=== PATIENT | male | born 1950 | race Caucasian/White ===

== ENCOUNTER 2018-11-27 12:08 | Inpatient (IN) | payer BC ==
[~2018-11-27] VITALS: Ht 175.3 cm; Wt 79.2 kg
--- NOTE | 2018-11-27 12:35 | NUR ---
Report from CELINE Boone(W) at 0909. Pt arrived via wheelchair with from admissions. Pt is in Rt ear per . Pivot transferred to bed with one assist, hopping on RLE, immobilizer in place to LLE. Bed alarm on, call lt in reach, showed pt menu to order lunch, he states he is not very hungry.
[2018-11-27 12:58] VITALS: BP 112/55; PULSE 75; TEMP 98.1
[2018-11-27] MEDS ORDERED: ROXICODONE 55 MG/TAB PO (14:02)
[2018-11-27] MEDS ORDERED: ELIQUIS 2.5 PO (14:03)
[2018-11-27] MEDS ORDERED: DULCOLAX TAB5 MG PO (14:04)
[2018-11-27] MEDS ORDERED: NEURONTIN300 MG/CAP PO (14:05)
[2018-11-27] MEDS ORDERED: COLACE 100100 MG/CAP PO (14:05)
[2018-11-27] MEDS ORDERED: LEADER CLE17 GM/Dose PO (14:06)
[2018-11-27] MEDS ORDERED: FLOMAX 0.40.4 MG/CAP PO (14:06)
[2018-11-27] MEDS ORDERED: NORVASC 5MG5 MG/TAB PO (14:07)
[2018-11-27] MEDS ORDERED: LOPRESSOR 550 MG/TAB PO (14:07)
[2018-11-27] MEDS ORDERED: LIPITOR 40MG TA40 MG PO (14:08)
[2018-11-27] MEDS ORDERED: ASPIRIN 81M81 MG/TA2 PO (14:08)
[2018-11-27] MEDS ORDERED: MULTI VITAMINS1 TAB PO (14:09)
[2018-11-27] MEDS ORDERED: PLAVIX 75MG TAB75 MG PO (14:09)
[2018-11-27] MEDS ORDERED: PRINIVIL20 MG PO (14:09)
[2018-11-27] MEDS ORDERED: NITROSTAT0.4 MG/TAB SL (14:10)
--- NOTE | 2018-11-27 19:34 | NUR ---
Home meds sent home with , Bárbara. Pt c/o constipation, reviewed bowel meds scheduled. Pt has some hearing/cog/problem solving deficits wherein repetition is required. Pt denied needing pain meds. Reviewed IPR POC. asked about getting pt shorts, agreed they would be easier to work with. Pt needed enc/cued/reminded to order meals, had shown him how to use the phone while he denied needing shown, later pt stated he needed someone to show him how to use it, shown again, and cued to number on menu and board. Pt began looking at menu, asked this nurse for recommendations, suggest two AHA choices. RENTAL CAR DELIVERER later reports that pt asked for help with ordering. Pt in bed, alarm on, call lt in reach, urinal in reach, glasses in reach, report to LUPE Lynn.
--- NOTE | 2018-11-27 20:00 | NUR ---
PT RESTING IN BED. MOD 1 ASSIST FOR BALANCE WITH WALKER. VOIDED W/O DIFFICULTY. PT DENIES URINARY RETENTION. NO HEMATURIA NOTED. LLE DRSG DRY. IMMOBILIZER IN PLACE. ELEVATED ON PILLOWS. PT FEEL ELECTRICAL PULSATION TO STUMP. WANTS PAIN MED AT 2200. REVIEWED DAILY SCHEDULE AND ROUTINE WITH PT. PT VERBALIZED WANTED TO GO HOME AND HEAL FOR A WEEK BEFORE COMING HERE. REVIEWED POTENTILA COMPLICATIONS FROM DOING THAT. PT AGREED. PT RELATED THERAPY TODAY REALLY HURT. CALL LIGHT IN REACH. BED ALARM SET.
[2018-11-28 05:17] VITALS: BP 120/62; PULSE 78; TEMP 98.5
--- NOTE | 2018-11-28 10:50 | NUR ---
SW met with the patient for an initial assessment, patient is new to [facility]. The patient lives in [place] with his and three kids. The patient does not have any DME and reports independence with ADLs before this hospitalization. The patient's PCP is Dr. Weston in [place] and [facility]. Crowell in [place]. The patient does not have advanced directives in the EMR. SW provided DPOA-HC form. The patient voiced concerns about being able to get around his home in a wheelchair. He is concerned about making his food and getting to the bathroom. SW addressed his questions and then informed the patient's nurse. The patient reports he has lots of social support. nutrition services assistant will continue to follow.
--- NOTE | 2018-11-28 11:46 | NUR ---
Report from LUPE Lynn. Pt ate breakfast in bed and was asleep upon arrival to give morning meds. Per Dr. Bermudez, pt has anxiety/discouraged about intensity of therapies, enc offered. 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 Applied lotion to knee and thigh- not incision. Removed knot at distal end of stump as this would be concern for causing pressure sore. Reapplied dressings and immobilizer, pt denied needing to toilet, agreeable to mallika prior to therapy, then agreed to toilet, passing gas, amb with walker, had BM. Pt reports that overnight he had a few episodes of "chest pain" which only lasted a few minutes. Nothing mentioned in report from night nurse. Dr. Bermudez aware and states pt's cardiac cath at previous facility was "clean." Ordered baseline EKG. Edu pt to call next time so staff is aware.
--- NOTE | 2018-11-28 13:19 | NUR ---
Elvira, OT reports pt was standing with walker and became nauseated, had about 1/4 cup clear emesis with bits of tater tots. Left voicemail for Dr. Bermudez for orders. Offered sprite and saltines.
--- NOTE | 2018-11-28 14:59 | NUR ---
Notified RT of orders for EKG at 0917, informed them of when pt had break between therapies, and when finished with therapies for the day as Dr. Bermudez wants a baseline for comparison. 1425 notified again. Pt bedresting, LLE on pillow with immobilizer in place. Declined pain med. TUMS given for reflux/emesis as prior episode.
[2018-11-28 18:02] VITALS: BP 124/57; PULSE 92; TEMP 98
--- NOTE | 2018-11-28 22:30 | NUR ---
Patient has been resting in bed. States not really having pain but requests pain med to help sleep/relax and roxycodone and melatonin reviewed and given. Is min 1 assist with walker and hops RLE without problems. Rests self back in bed. Declines snack or needs.
--- NOTE | 2018-11-29 01:55 | NUR ---
Rests with eyes closed. Respirations with ease.
--- NOTE | 2018-11-29 03:26 | NUR ---
Rests with eyes closed. Respirations with ease.
[2018-11-29 05:31] VITALS: BP 100/57; PULSE 68; TEMP 97.8
--- NOTE | 2018-11-29 11:27 | NUR ---
Patient was not in the room and he may have been in physical or group therapy.
[2018-11-29 16:48] VITALS: BP 125/61; PULSE 73; TEMP 97.9
--- NOTE | 2018-11-29 18:00 | NUR ---
Alert. Denied pain. Had group therapy with PT this AM. Slept at intervals throughout shift.
[2018-11-30 04:27] VITALS: BP 117/60; PULSE 78; TEMP 97.7
[2018-11-30 17:05] VITALS: BP 130/61; PULSE 72; TEMP 98.3
--- NOTE | 2018-11-30 18:00 | NUR ---
Minimal complaints of pain today. Denied need for pain med. Immobilizer to left knee. Ambulates well with walker. Complained of bloating. Bowel meds given.
--- NOTE | 2018-11-30 18:50 | NUR ---
Pt calls for assist to BR. Gait belt and walker with 1:1 assist. Steady gait. Had large loose BM. Voided. Voices no c/o pain, SOA.
[2018-12-01 05:23] VITALS: BP 103/61; PULSE 81; TEMP 97.4
--- NOTE | 2018-12-01 06:29 | NUR ---
Pt has had an uneventful night. Company came for a while last night. Calls for stand by assist to the BR. Uses walker and gait belt. Steady gait.
[2018-12-01 07:19] LABS: BASO # 0.1 (0.0-0.2); BASO % 0.4 % (0.0-2.0); EOS # 0.5 (0.0-0.7); EOS % 4.4 % (0-4.0); GRAN # 8.7 (1.4-6.5); GRAN % 74.5 % (42.2-75.2); LYMPH # 1.5 (1.2-3.4); LYMPH % 12.9 % (20.0-51.0); MEAN CELL VOLUME 90 fl (80.0-100.0); MEAN CORPUSCULAR HGB CONC 32 g/dl (33.0-37.0); MEAN PLATELET VOLUME 9.7 fl (7.4-10.4); MONO # 0.8 (0.1-0.6); MONO % 6.9 % (1.7-9.3); PLATELET COUNT 446 K/mm3 (130-400); RED BLOOD COUNT 3.43 M/mm3 (4.20-5.60); REDCELL DISTRIBUTION WIDTH-CV 13.8 % (11.5-14.5)
[2018-12-01 07:28] LABS: HEMATOCRIT 30.7 % (42.0-52.0); HEMOGLOBIN 9.8 g/dl (13.5-18.0); MEAN CORPUSCULAR HEMOGLOBIN 29 pg (27.0-31.0)
[2018-12-01 07:37] LABS: CALCIUM 8.4 mg/dL (8.4-10.2); CREATININE, serum 0.96 (0.66-1.25); MAGNESIUM 2.4 mg/dL (1.6-2.3); POTASSIUM 4.6 mmol/L (3.4-5.0)
--- NOTE | 2018-12-01 10:44 | NUR ---
Report from LUPE Reynolds. Pt in bed for breakfast, requested to toilet, amb to BR with CGA gait belt, walker. Pt reports pain to R shoulder, ice pack provided, declines pain med/tylenol at this time, just wants to bedrest. Immobilizer in place. Reviewed bowel med regime.
--- NOTE | 2018-12-01 11:12 | NUR ---
During skin assessment of L BKA, noted that bulky dressing to stump had slid distally and off of stump. Removed dressing to find incision with edges well approximated, old sangiounous dried drainage to gauze, old xeroform gauze, and wali and roll sleeve under immobilizer. Slight scabbing to incision, slight redness, one area of skin around middle of incision that is discolored red but intact. Applied new xeroform gauze and staggered layers of gauze 4x4s and secured with kerlix, wali, and roll stockinette, immobilizer re-applied. Pt alysha well, asleep now in bed with alarm on. Call lt in reach, urinal in reach.
--- NOTE | 2018-12-01 12:49 | NUR ---
Pt was having emesis, Joann, JIVE DEVELOPER assisted pt to BR and he continues to vomit.
--- NOTE | 2018-12-01 13:08 | NUR ---
Pt continues to produce thick clear mucous, reports his stomach feels full up from the bottom. BS active. Having loose stools. TUMS given. Sitting up in bed. Call lt in reach.
--- NOTE | 2018-12-01 13:27 | NUR ---
Left Dr. Bermudez voicemail regarding reflux/emesis and asking for orders.
--- NOTE | 2018-12-01 14:36 | NUR ---
See orders for KUB
[2018-12-01 16:41] VITALS: BP 129/68; PULSE 81; TEMP 98.2
--- NOTE | 2018-12-01 17:27 | NUR ---
Pt bedresting, has not eaten any supper yet, encouraged to take it slow d/t emesis earlier. Pt amb to BR with walker, heard belching again, basin in reach, will continue to monitor.
--- NOTE | 2018-12-01 21:25 | NUR ---
HS meds all reviewed and given earlier was still working on supper "took me 6 hours to eat". Denies nausea "I think things just aren't working right stomach". Declined bowel meds. Roxycodone given for 1/10 pain LBKA. Watches TV.
--- NOTE | 2018-12-02 02:34 | NUR ---
Patient rests in bed with eyes closed. Respirations with ease.
[2018-12-02 05:10] VITALS: BP 117/59; PULSE 78; TEMP 98.4
--- NOTE | 2018-12-02 08:24 | NUR ---
Patient working with OT at this time. Patient reports pain 2/10 to left stump this morning. Refused any pain meds.
[2018-12-02 08:30] VITALS: BP 135/68; PULSE 89
--- NOTE | 2018-12-02 12:48 | NUR ---
Patient attended all therapies this morning. Was independent with his grooming, just required set up. Is continent of bowel and bladder. Blood pressure was lower this morning prior to getting out of bed. BP was retaken prior to taking morning blood pressure meds and were no longer low. Will continue to monitor.
--- NOTE | 2018-12-02 13:29 | NUR ---
Patient currently resting in bed at this time.
[2018-12-02 17:37] VITALS: BP 116/53; PULSE 73; TEMP 97.5
--- NOTE | 2018-12-02 19:45 | NUR ---
HS meds all reviewed and given along with bowel med for no bm today. Up to the bathroom with standby assist and walker and back to bed. Denies pain at this time.
--- NOTE | 2018-12-02 21:37 | NUR ---
Rests in bed visiting on phone.
--- NOTE | 2018-12-03 03:09 | NUR ---
Patient has been resting in bed with eyes closed respirations with ease.
[2018-12-03 03:47] VITALS: BP 94/54; PULSE 65; TEMP 97.3
--- NOTE | 2018-12-03 09:10 | NUR ---
Report from LUPE Landrum. Pt in bed for breakfast and resting until nurse arrived to give morning meds. Took meds whole with thin liquid, pt denies having BM yesterday and BM meds held yesterday. Discussed options, agreeable to miralax, enc to drink slowly today, will re-assess later. Declined offer to toilet at this time. Bed alarm on, call lt in reach, immobilizer to LLE on pillow. Declined pain meds prior to therapies.
--- NOTE | 2018-12-03 12:25 | NUR ---
Pt states he cannot eat, feels too full, thinks he will get sick if he tries eating. Zofran and TUMS given. Resting in bed, immobilizer to LBKA
--- NOTE | 2018-12-03 15:48 | NUR ---
MIKE met with patient to review IPR team conference notes and discuss discharge on Tuesday 12/05. Patient read through notes and did not have any questions or concerns. Patient will require bath aids, a wheelchair, and walker. Patient reports he plans to purchase the bath aid online but would like to have the walker and wheelchair prior to discharge. SW presented DME choice form and DME company choices. Patient chose [facility] to provide the wheelchair and walker. Patient reported he would like to private pay for the walker and use his insurance for the walker. SW also reported that home health PT and OT is also recommended. MIKE provided a list of home health agencies that services [place], [place]. Patient reports he would like to speak with his friend who works on home health for her opinion. MIKE will follow up about HH choice tomorrow. MIKE contacted and faxed the wheelchair and walker order to [facility].
[2018-12-03 16:46] VITALS: BP 102/53; PULSE 71; TEMP 97.6
--- NOTE | 2018-12-03 19:25 | NUR ---
Pt requested suppository, provided, toileted once and no results, in bed resting, denies any needs, has not started to eat supper. Report to LUPE Landrum.
--- NOTE | 2018-12-03 22:15 | NUR ---
Patient rests in bed and concerned about not having bm for 2 days. Miralax and colace give along with HS meds, sleep and pain med. Is mod I in room without difficulty. States is passing gas. Bowel sounds active x 4.
--- NOTE | 2018-12-04 03:00 | NUR ---
Patient has been resting with eyes closed. Respirations with ease.
--- NOTE | 2018-12-04 05:06 | NUR ---
AWAKENED FOR MED AND VITALS. DENIES PAIN. STATES DIDN'T HAVE BM OR GET UP IN THE MIDDLE OF THE NIGHT. REPORTS SLEPT.
[2018-12-04 05:08] VITALS: BP 88/52; PULSE 64; TEMP 97.6
[2018-12-04 07:06] VITALS: BP 89/59; PULSE 69; TEMP 97.9
--- NOTE | 2018-12-04 07:17 | NUR ---
Report from LUPE Landrum. Pt mod I in rm. Left voicemail for Dr. Reaves to call this nurse. Low BPs and will hold BP meds
--- NOTE | 2018-12-04 08:05 | NUR ---
Rehab cocktail given with miralax. Pt passing lots of gas. Denies nausea at this time, did not eat toast.
--- NOTE | 2018-12-04 12:04 | NUR ---
Declined offer of zofran as prev of N/V
[2018-12-04 12:56] VITALS: BP 89/50; PULSE 76; TEMP 97.9
--- NOTE | 2018-12-04 21:00 | NUR ---
Pt. sitting up in bed at this time. Pt. is A&OX3, assessment complete. Dressing to LT. BKA CDI with immobilizer on. Pt. reports pain at a 5 on pain scale, gave pain meds per orders. Pt. denies further needs, call light within reach.
[2018-12-05 05:21] VITALS: BP 123/74; PULSE 84; TEMP 97.7
[2018-12-05 10:25] VITALS: BP 120/68; PULSE 87
[2018-12-05] MEDS ORDERED: DULCOLAX TAB5 MG PO (11:56)
[2018-12-05] MEDS ORDERED: TUMS EXTRA STR750 MG PO (11:57)
[2018-12-05] MEDS ORDERED: ROXICODONE 55 MG/TAB PO ×3 (11:58→12:41)
[2018-12-05] MEDS ORDERED: LOPRESSOR 550 MG/TAB PO (11:58)
--- NOTE | 2018-12-05 13:08 | NUR ---
SW met with patient to discuss discharge today. Patient will discharge home today with his and receive home health PT/OT. Patient reviewed medicare.gov resource list and chose [facility]. Patient will also receive a wheelchair and walker from [facility] prior to discharge. SW contacted [facility] and faxed referral SW faxed discharge orders.
--- NOTE | 2018-12-05 14:00 | NUR ---
Patient Health Summary, Discharge Summary, and Home Meds printed and reviewed with patient and . Stressed importance of follow up appointments. Reviewed medications, provided printed prescription for Roxicodone. Called presscriptions for Eliquis, Docusate, Gabapentin, tamsulosin, atorvastatin and plavix to [facility]. Belongings gathered by LUPE/Leidy including glasses, immobilizer, flip phone, IPAD and 2 chargers. Patient transported via whellchair by RN/Leidy and seatbelted for ride home. Patient and denied questions.
--- NOTE | 2018-12-05 14:29 | NUR ---
Patient was independent in his room today with a wheelchair. Denied pain this shift. Reported having problems with having a BM, but did have a small soft formed brown BM early this morning and then Large sof formed prior to being discharged. Denied any nausea. Discussed discharge with both him and his . Educated with how to put the wheelchair in the trunk of her car. Patient was able to transfer to car from wheelchair independently.
--- NOTE | 2018-12-05 14:44 | NUR ---
Discharge FIM scores for 11/04/18 were reviewed by the team. Team determined the nursing score of (6) for toileting was inaccurately scored as documentations state pt "MANAGES ALL TOILETING TASKS" which would make the score a 7.--PD Casey.
--- NOTE | 2018-12-05 15:58 | NUR ---
MIKE rec'd a call from Lauren at [facility]. Lauren reports they are unable to accept patient because they do not have OT in the patient's area. MIKE contacted [facility] in [place], [place] and they report they can provide PT and OT for [place], [place]. She did report that they are unsure if insurance will approve before the weekend but she will contact patient's after insurance approves or denies. She did report that they will assist patient and with locating an in network company in the event that [facility] is out of network with [facility]. MIKE then contacted patient's and informed her of this. MIKE informed of the other company that patient chose, [employer]. Patient's is agreeable to [employer]. MIKE faxed referral and discharge orders to [facility]. [place], [place] office P# [phone] F# [phone]
--- NOTE | 2018-12-08 14:16 | NUR ---
Kristian, at [facility], reports that they did not receive the patient's facesheet or discharge orders. MIKE faxed those documents to Kristian at [facility].
== END 2018-12-05 13:50 | disposition home health service (06) | DRG 948 ==
PROVIDERS: ADMIT Internal Medicine
DX: R53.81 Other malaise (principal); I25.10 Atherosclerotic heart disease of native coronary artery without angina pectoris; I25.2 Old myocardial infarction; I73.9 Peripheral vascular disease, unspecified; I10 Essential (primary) hypertension; D64.9 Anemia, unspecified; N40.1 Benign prostatic hyperplasia with lower urinary tract symptoms; Z89.512 Acquired absence of left leg below knee; Z79.01 Long term (current) use of anticoagulants; Z79.82 Long term (current) use of aspirin; Z79.891 Long term (current) use of opiate analgesic; Z95.5 Presence of coronary angioplasty implant and graft; Z87.891 Personal history of nicotine dependence; R33.8 Other retention of urine; K59.00 Constipation, unspecified
CPT/HCPCS: 99222-AI; 99231-AI; 99232-AI; 99239